=== PATIENT | female | born 1950 ===

== ENCOUNTER 2021-09-03 11:25 | Day surgery (SDC) | payer OTHER ==
[~2021-09-03] VITALS: Ht 149.9 cm; Wt 67.1 kg
[~2021-09-03 11:25] MED LIST: BONIVA150 MG PO; COZAAR25 MG PO; LOSARTAN POTASS25 MG PO; PRILOSEC20 MG PO; PYRIDIUM DS200 MG PO; PYRIDIUM100 M1 PO; SEPTRA DS TABLE1 TAB PO; SYNTHROID112 MCG PO; SYNTHROID50 MCG PO; ZANTAC150 M3 PO
[2021-09-03] MEDS ORDERED: POLY119PG PO (14:45)
[2021-09-03] MEDS ORDERED: NEURONTIN600 M1 PO (14:45)
[2021-09-03] MEDS ORDERED: PERCOCET 5-3251 EACH PO (14:45)
== END 2021-09-03 18:00 | disposition home or self-care (01) ==
LOC: CIR.AMB 11:25
PROVIDERS: ATTEND Surgery
DX: K80.10 Calculus of gallbladder with chronic cholecystitis without obstruction (principal); Z20.822 Contact with and (suspected) exposure to COVID-19; I10 Essential (primary) hypertension; E78.00 Pure hypercholesterolemia, unspecified; E03.9 Hypothyroidism, unspecified; G43.909 Migraine, unspecified, not intractable, without status migrainosus; M81.0 Age-related osteoporosis without current pathological fracture; K21.9 Gastro-esophageal reflux disease without esophagitis

== ENCOUNTER 2024-03-23 07:07 | Outpatient (CLI) | payer OTHER ==
[~2024-03-23 07:07] MED LIST changes: +NEURONTIN600 M1 PO; +PERCOCET 5-3251 EACH PO; +POLY119PG PO
== END 2024-03-23 07:08 | disposition home or self-care (01) ==
LOC: NUCLEAR 07:07
DX: E21.3 Hyperparathyroidism, unspecified (principal)
CPT/HCPCS: 78070; A9500